=== PATIENT | male | born 1960 | race Hispanic/Latino ===

== ENCOUNTER → 2024-06-25 | Outpatient (CLI) | payer OTHER | END | disposition home or self-care (01) | LOC: RAH 10:57 | PROVIDERS: ATTEND Orthopaedic Surgery | DX: S83.242A Other tear of medial meniscus, current injury, left knee, initial encounter (principal); M71.22 Synovial cyst of popliteal space [Baker], left knee; M25.462 Effusion, left knee; X58.XXXA Exposure to other specified factors, initial encounter; Y93.89 Activity, other specified; Y92.89 Other specified places as the place of occurrence of the external cause; Y99.8 Other external cause status | CPT/HCPCS: 73721 ==

== ENCOUNTER 2024-10-08 06:24 | Observation (INO) | payer OTHER ==
--- NOTE | 2024-10-06 10:50 | EKG ---
[facility] Test Date: 2024-10-06 Test Time: 11:38:55 Pat Name: SILVA GIL Department: [facility] Room: Gender: M Administrative Asst: [id number] : 1960 Requested By: KARLEY PRAKASH Order Number: [id number] Reading MD: Nithin Diop Measurements Intervals [place] Rate: 67 P: 62 CA: 168 QRS: 65 QRSD: 101 T: 6 QT: 417 QTc: 441 Interpretive Statements Sinus rhythm No previous ECG available for comparison Electronically Signed On 10-07-2024 20:01:28 OFFSET [employer]OOF PRESS OPERATOR by Nithin Diop Please click the below link to view image of tracing.
[2024-10-06 11:01] VITALS: BP 130/74; PULSE 82; RESP 18; TEMP 97.9
[2024-10-06 11:02] LABS: BASOPHILS # (AUTO) 0.03 K/uL (0.00-0.20); BASOPHILS % (AUTO) 0.5 % (0.0-5.0); EOSINOPHILS # (AUTO) 0.35 K/uL (0.00-0.70); EOSINOPHILS % (AUTO) 5.6 % (0.0-8.0); HEMATOCRIT 44.8 % (42-54); IMMATURE GRANULOCYTE ABSOLUTE 0.01 K/uL (0-1); LYMPHOCYTES # (AUTO) 1.8 K/uL (1.0-4.8); LYMPHOCYTES % (AUTO) 28.1 % (21.0-51.0); MEAN CORPUSCULAR HEMOGLOBIN 26.3 pg (27.0-33.0); MEAN CORPUSCULAR HGB CONC 32.6 g/dL (32.0-36.0); MEAN CORPUSCULAR VOLUME 80.6 fL (79-99); MONOCYTES # (AUTO) 0.6 K/uL (0.1-1.0); MONOCYTES % (AUTO) 9.1 % (3.0-13.0); NEUTROPHILS # (AUTO) 3.5 K/uL (1.8-7.7); NEUTROPHILS % (AUTO) 56.5 % (40.0-77.0); PLATELET COUNT (AUTO) 285 K/uL (130-400); RED BLOOD CELL COUNT(AUTO) 5.56 MIL/uL (4.50-6.20); RED CELL DISTRIBUTION WIDTH 14.3 % (11.0-15.5); WHITE BLOOD COUNT (AUTO) 6.2 K/uL (4.8-10.8)
[2024-10-06 11:12] LABS: CREATININE 1.2 mg/dL (0.5-1.3); POTASSIUM 4.2 mmol/L (3.5-5.1)
[2024-10-06 11:42] LABS: INR 0.97 (0.85-1.15); PROTHROMBIN TIME 10.9 SEC (9.6-11.6)
[2024-10-06 11:43] LABS: PARTIAL THROMBOPLASTIN TIME 31.5 SEC (26.3-35.5)
[~2024-10-08] VITALS: Ht 182.9 cm; Wt 98.5 kg
[2024-10-08] VITALS (32 sets, daily range): BP systolic 110–153; BP diastolic 67–102; PULSE 66–98; RESP 15–19; TEMP 97.2–98.1
[~2024-10-08 06:24] MED LIST: ALBU18HF7 IH; BISA-151 PO; BUPR-49 PO; ESOM40CA66 PO; FAMO40TA7 PO; FLUT1BLS3 IH; MONT-46 PO; OLOP5DRO26 OU; SERT-440 PO; TRAM-543 PO
[2024-10-08] MEDS: FAMOTIDINE 20MG VIAL IV ONE (06:59)
[2024-10-08] MEDS: acetaMINOPHEN 100 ML ONE (06:59)
[2024-10-08] MEDS ORDERED: rocuRONium bROMide 10MG/1ML 5ML VL ONE ×2 (07:24→08:59)
[2024-10-08] MEDS ORDERED: FENTanyl CITRate PF 50 MCG/1 ML 2ML VIAL ONE (07:24)
[2024-10-08] MEDS ORDERED: proPOFol 10 MG/ML 20ML VIAL IV ONE (07:24)
[2024-10-08] MEDS ORDERED: LIDOCAINE PF 100MG/5ML (2%) SYRINGE 5ML ONE (07:24)
[2024-10-08] MEDS ORDERED: ketaMINE 50MG/ML SYRINGE 50 MG/ML DISP.SYRIN ONE (07:27)
[2024-10-08] MEDS: ceFAZolin SODIUM 2 GM VIAL ONE (07:41)
[2024-10-08] MEDS: LACTATED RINGERS 1000ML 1,000 ML IV ONE (07:41)
[2024-10-08] MEDS: ceFAZolin SODIUM 2 GM VIAL IVPB ONE (07:49)
[2024-10-08] MEDS ORDERED: dexaMETHasone SOD PHOSPHATE 10MG/ML 1ML VIAL ONE (07:56)
[2024-10-08] MEDS ORDERED: ondanSETRON 4MG INJ ONE (07:56)
[2024-10-08] MEDS ORDERED: BUPIvacaine/PF 0.25% 30ML VIAL IJ ONE (07:58)
[2024-10-08] MEDS ORDERED: ePHEDrine SULFate 50 MG/ML AMPULE ONE (08:25)
[2024-10-08] MEDS ORDERED: NEOSTIGMINE METHYLSULFATE 1MG/ML IV ONE (09:52)
[2024-10-08] MEDS ORDERED: GLYCOPYRROLATE 0.2 MG/ML 5 ML VIAL ONE (09:52)
[2024-10-08] MEDS: MEPERIDINE-PF 50 MG/ML SYG ONE (10:17)
[2024-10-08] MEDS ORDERED: ALBUTEROL INHALER 90MCG/INH IH PRN (10:30)
[2024-10-08] MEDS ORDERED: ondanSETRON 4MG INJ IVP PRN ×2 (10:30→11:00)
[2024-10-08] MEDS ORDERED: PROCHLORPERAZINE 10MG/2ML INJ IV PRN ×2 (10:30→11:00)
--- NOTE | 2024-10-08 10:45 | OP ---
Operative Note: DATE OF PROCEDURE: 10/08/24 SURGEON: KARLEY PRAAKSH MD MANAGER OF APPLICATIONS DEVELOPMENT: [Please review operative record] ANESTHESIA: [General and local] ANESTHESIOLOGIST/GOLD PLATER: [Please review operative record] PREOPERATIVE DIAGNOSIS: [Diaphragmatic hernia] POSTOPERATIVE DIAGNOSIS: [Same] SYNOPSIS: [3 cm diaphragmatic hernia containing incarcerated cardia] PROCEDURE: [Robotic assisted laparoscopic hiatal hernia repair with mesh, intraoperative EGD, anterior partial fundoplication] ESTIMATED BLOOD LOSS: [20 cc] INDICATIONS: [Patient is a 63-year-old male with chronic heartburn, found to have a small hiatal hernia on EGD. Upper GI showing gastroesophageal reflux disease. Patient failed conservative management with dietary changes and antacid medication. Recommendation was given for surgical approach with hiatal hernia repair with fundoplication. Risks, benefits, alternatives were discussed with the patient. All questions were answered. Patient agreed to proceed with surgical intervention.] DESCRIPTION OF PROCEDURE: [After appropriate consent was obtained, the patient was brought into the operating room placed in supine position on the operating table. SCDs were placed, preop antibiotics were given. Patient underwent ind uction of general anesthesia, endotracheal intubation. Patient was prepped and draped in usual sterile fashion. Time-out was performed. Through a left subcostal incision, Veress needle was inserted into the peritoneal cavity. Insufflation was allowed to 12 mmHg. Through a supraumbilical 8 mm incision, trocar and laparoscope were inserted into the peritoneal cavity using Optiview. Veress needle and this vicinity were examined with no signs of injury. Rest of my trocars were placed under direct visua lization. Patient was positioned in the reverse Trendelenburg at 20. Through a 5 mm incision, Agnieszka liver retractor was placed in order to retract the left lobe of the liver anteriorly. The Aureliano robot was docked at this time. Upon evaluation of the diaphragmatic hiatus, there was a 3 cm diaphragmatic defect containing incarcerated cardia of the stomach. Our dissection began by incising the hepatogastric ligament in the avascular plane. This was followed cephalad towards the diaphragm using vessel sealer. The hiatal orifice was dissected circumferentially using vessel sealer. Right crura was identified and a plane was developed between the right raad and the right wall of the esophagus. This dissection was accomplished with a combination of both vessel sealer and blunt dissection. On the posterior aspect of the esophageal wall, the left raad was identified and this dissection was followed towards the left raad. A few short gastrics were divided in order to fully mobilize the fundus of the stomach. Once the esophagus was fully mobilized, we focused on the intra mediastinal dissection. Again this was accomplished mostly with blunt dissection very little vessel sealer dissection. Once there was 3 cm of intra- abdominal esophagus, we then passed the endoscope through the mouth into the esophagus and into the stomach. With the endoscope in place, we then proceeded to perform our crural plasty. This was achieved by approximating the left and right crura on the posterior aspect of the esophagus using two 0 V lock nonabsorbable suture in a running fashion. At the end of the crural plasty, only one instrument was able to pass through the diaphragmatic hiatus. A 8 cm Phasix round mesh with a horseshoe configuration was then used to reinforce the repair. At this mesh was sutured in place using 3-0 absorbable V lock suture in a running fashion in a couple of simple interrupted 2-0 silks. At this time we focused on creating a partial anterior fundoplication. Of note the endoscope remaining the stomach during this whole time. The fundus was grasped and passed from left to right anteriorly to the esophagus and sutured in place to the right raad and diaphragm using 2-0 silk suture in a running fashion. Endoscopy with insufflation revealed no air leak, no stenosis through the GE junction, appropriate reduction of the hiatal hernia in an intact wrap. At this time we completed our hiatal hernia repair. The Aureliano robot was undocked. Final inspection revealed adequate hemostasis, no concerns for leakage. The abdomen was allowed to deflate, all instruments were removed, counts were correct at the end of the case. Patient tolerated the procedure well. Skin incisions were closed with 4-0 Monocryl suture. Dermabond was applied over the incisions.] KARLEY PRAKASH MD Oct 08, 2024 10:45
[2024-10-08] MEDS ORDERED: HYDROcod/acetaMINOPHEN 7.5/325 MG 15 ML UDCUP PO PRN (11:00)
[2024-10-08] MEDS ORDERED: hydroMORPHone 0.5 MG SYG (0.5MG/0.5ML) IVP PRN (11:00)
[2024-10-08] MEDS: ketOROlac 15MG/ML VIAL (15MG/ML) IV PRN (16:05)
[2024-10-08] MEDS: LACTATED RINGERS 1000ML 1,000 ML IV SCH (16:06)
[2024-10-08] MEDS: ENOXAPARIN SODIUM 30 MG/0.3 ML SQ SCH (21:23)
[2024-10-09] VITALS: BP 134/79; PULSE 83; RESP 20; TEMP 98
[2024-10-09 04:00] VITALS: BP 137/81; PULSE 78; RESP 18; TEMP 97.8
[2024-10-09 08:00] VITALS: BP 134/84; PULSE 71; RESP 19; TEMP 98.1
[2024-10-09] MEDS: BisaCODYL 5 MG TABLET.DR PO SCH (08:42)
[2024-10-09] MEDS: (Fluticasone/Umeclidin/Vilanter (Trelegy Ellipta 100-62.5- IH SCH (08:42)
[2024-10-09] MEDS: buPROPion HCL 150 MG TABLET.SA PO SCH (08:43)
[2024-10-09] MEDS: SERTraline HCL 50 MG TABLET PO SCH (08:43)
--- NOTE | 2024-10-09 08:45 | DS ---
Discharge Summary Hospital Course Patient is 63-year-old male who was admitted from the outpatient setting for elective robotic assisted laparoscopic hiatal hernia repair with mesh and anterior partial fundoplication for severe GERD and diaphragmatic hiatal hernia on 10/08/2024. Now postop day one. Patient progressing well, ambulating, pain well controlled, tolerating diet. Vital signs remained stable, abdomen is benign. Incisions clean dry and intact. No rebound or guarding. Appropriately tender to palpation. Patient meeting discharge criteria, postop follow up in place. Postop meds have been submitted. Patient to avoid lifting more than 20 lb for a month. Patient will continue bariatric phase one diet. Return precautions given including fevers of 101.5 or higher, worsening abdominal pain, intractable nausea and vomiting. KARLEY PRAKASH MD Oct 09, 2024 08:45
[2024-10-09 09:22] VITALS: O2SAT 97
[2024-10-09] MEDS ORDERED: FAMOTIDINE 20MG VIAL IV SCH (10:00)
--- NOTE | 2024-10-09 10:38 | NUR ---
D/C INSTRUCTIONS PROVIDED AND ACKNOWLEDGED; IV LINE REMOVED
--- NOTE | 2024-10-09 10:53 | NUR ---
Nutrition consult per s/p hiatal hernia Reviewed labs, notes, and medications. Pt on CLD+ elevated bun 21, Cr WNL per chart review. Pt reported 100%PO intake, received gi soft bland food in the am, denied vomiting, has nausea, takes MVI QD, has been having belching and gas, does not have PCP appointment, has been walking around, did not see RD prior to procedure. RD reviewed educational material for post-op diet recommendations. Pt was informed of importance of lifelong vitamin/mineral supplementation, choosing protein first during meals (pt was educated on higher protein requirements), choosing low calorie, sugar free, carbonated free and caffeine beverages. RD also informed pt on lifelong commitment to exercise and dietary recommendations for optimal success post surgery. RD encouraged getting blood work every 3 to 6 months, including B-vitamins, Pt verbalized understanding. RD informed Pt on moving around after procedure to prevent DVT, Pt verbalized understanding. Pt was encouraged to contact RD as questions arise and to attend support groups. Fair compliance suspected. Pt will benefit from outpatient bariatric dietitian follow up post procedure. Pt to follow up with PCP for labs. Recommendations: -Continue phase 1 bariatric diet for 1 week -Monitor electrolytes -Monitor diet tolerance -Monitor BM -Monitor wts -Monitor PO intake -Recommend Pt to follow up with PCP -Monitor goals of care RD available for consult per protocol Addendum: 10/09/24 at [address] Amended: Links added.
== END 2024-10-09 14:02 | disposition home or self-care (01) ==
LOC: DAH 06:24 → DAHIP 06:25 → INTOOBSV 06:25 → 3DH 13:37
PROVIDERS: ADMIT Surgery; ATTEND Surgery
DX: K44.9 Diaphragmatic hernia without obstruction or gangrene (principal); K21.9 Gastro-esophageal reflux disease without esophagitis; Z86.2 Personal history of diseases of the blood and blood-forming organs and certain disorders involving the immune mechanism; Z79.899 Other long term (current) drug therapy
CPT/HCPCS: 80048; 85025; 85610; 85730; 86850; 86900; 86901; 36415; 93005; 43282; 96374; 96372; A6260; S2900; G0378 ×7; A4663; A4215 ×2; J7120 ×2; J3490 ×5; J3010; J1100; J0665 ×2; J2003; J1650; J2704; J2405; J2710; J2175; J1885; J0690 ×2; C1781; A4930; A4223 ×2; A4222; A4221; A4216; A4600; 43235

== ENCOUNTER → 2025-02-04 | Outpatient (CLI) | payer OTHER ==
[~2025-02-04] MED LIST changes: -FAMO40TA7 PO; +REGADENOSON 0.4 MG/5 ML PF SYG IVP ONE
--- NOTE | 2025-02-05 18:23 | HMCSR ---
APPROVED REPORT Height: 6 ft 1in Weight: 215 lbs TEST INDICATIONS OTHER FORMS OF DYSPNEA The imaging protocol used to acquire images was Rest Tc-99m/stress Tc-99m 1 day Consent: The procedure was explained and understood by the patient. Informerd consent was witnessed Cecy Cortes RN First, low dose rest was performed then high dose stress. RESTING DATA: The resting ekg shows: NSR Rest SPECT myocardial perfusion imaging was performed in supine position minutes following the intra venous injection of 10 mCi of Tc-99 Sestamibi. Time of rest injection: Date: 02/04/2025 Time of rest imaging: Date: 02/04/2025 PHARMACOLOGIC STRESS: Pharmacologic stress test was performed by injecting regadenoson 0.4 mg IV push followed by the intra venous injection of 30 mCi of Tc-99 Sestamibi. Time of stress injection: Date: 02/04/2025 Time of stress imaging: Date: 02/04/2025 Heart Rate at time of stress injection: 63 bpm. The images were gated to evaluate regional wall motion and calculate left ventricular ejection fracti on. STRESS DETAILS Reason for Termination: Infusion complete Stress Symptoms: Dyspnea; palpitations Max HR Achieved: 92 bpm % of APMHR Achieved: 68 Max Blood Pressure: 137/73 mmHg Stress ECG: NSR Arrhythmia: No. ST Change: No. Study quality was fair. Artifact: diaphragmatic artifact, motion artifact LEFT VENTRICLE Size: The left ventricular size is normal. Systolic Function:The left ventricular systolic function is normal. Wall Motion: No regional wall motion abnormalities noted. The left ventricular ejection fraction was calculated to be 68%.TID = . LV PERFUSION The rest and stress images show normal perfusion. No reversible ischemia or areas of infarct were see n. No obvious TID. RV Size/Shape The RV was not well visualized. IMPRESSION Stress ECG Summary: Nondiagnostic Conclusion Normal lexiscan stress test. The rest and stress images show normal perfusion. No reversible ischemia or areas of infarct were see n. No obvious TID. The left ventricular size is normal. No regional wall motion abnormalities noted. The left ventricula r systolic function is normal. Post-stress LVEF was calculated to be 68%. Stress ECG Summary: Nondiagnostic Study indicates a low risk for cardiovascular events.
== END | disposition home or self-care (01) ==
LOC: RAH 08:48
PROVIDERS: ATTEND Internal Medicine Cardiovascular Disease
DX: R06.09 Other forms of dyspnea (principal); R00.2 Palpitations; H25.13 Age-related nuclear cataract, bilateral
CPT/HCPCS: 78452; 93017; J2785; A9500 ×2